=== PATIENT | male | born 1985 ===

== ENCOUNTER 2022-02-12 10:45 | Emergency (ER) | payer SELFPAY ==
[2022-02-12] MEDS: MVI, Adult with Vitamin K 10 ML, Folic Acid 1 MG, Thiamine 100 MG in Lactated Ringers 1... IV ONE ×4 (11:17)
[2022-02-12] MEDS: Sodium Chloride 0.9% 10 ML Syringe FLUSH PRN (11:17)
[2022-02-12 11:27] LABS: ANION GAP 14.7 mEq/L (7-13); CHLORIDE,CL 101 mmol/L (98-107); SODIUM,NA 137 mmol/L (136-145)
[2022-02-12] MEDS: LORazepam 2 MG/ML SDV IVPUSH ONE (11:29)
[2022-02-12 11:39] LABS: ESTIMATED GFR > 60
[2022-02-12] MEDS: Iopamidol 612 MG/ML 100 ML Bottle IVPUSH ONE (12:33)
== END 2022-02-12 13:27 | disposition home or self-care (01) ==
LOC: DL.ED 10:45
DX: R00.0 Tachycardia, unspecified (principal); M54.6 Pain in thoracic spine; F10.10 Alcohol abuse, uncomplicated; F17.210 Nicotine dependence, cigarettes, uncomplicated; Z88.0 Allergy status to penicillin
CPT/HCPCS: 36415; 74177; 80053; 83735; 84443; 84484; 85025; 93005; 93010; 96365; 96375; 99284; 99285; J2060; J3411; J3490; J7120; Q9967